=== PATIENT | female | born 1980 | race African-American/Black ===

== ENCOUNTER 2017-06-23 09:00 | Inpatient (IN) | payer OTHER ==
[2017-07-01 10:55] VITALS: BMI 31.6
[2017-07-05] MEDS ORDERED: ROPIVACAINE HCL 0.5% 30ML VIAL ONE (08:29)
[2017-07-05] MEDS ORDERED: DEXAMETHASONE SOD PHOSPHATE/PF 10 MG/ML SDV ONE (08:29)
[2017-07-05] MEDS ORDERED: MIDAZOLAM HCL 2 MG/2 ML SINGLE DOSE VIAL ONE ×2 (08:31)
--- NOTE | 2017-07-05 09:04 | HP ---
Past Medical History - Primary Care Physician PCP:: Riley Kearney - Admission Chief Complaint: 36yo P1 admitted for abdominal myomectomy. History of Present Illness: Fibroid uterus with menorrhagia, dysmenorrhea. 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 HEALTH: No: Alzheimer's, CVA, Dementia, Migraine, Multiple Sclerosis, Peripheral Neuropathy, Parkinson's, Seizure, Syncope, TIA, Vertigo, Other Cardiovascular: No: AFIB, Aneurysm, Aortic Insufficiency, Aortic Stenosis, CAD, CHF, Deep Vein Thrombosis, HTN, Hyperlipdemia, [place], Mitral Insufficiency, Mitral Stenosis, Murmur, Pulmonary Hypertension, Other Pulmonary: No: Asthma, Bronchitis, Cancer, COPD, O2 Dependent, Pneumonia, Previously Intubated, Pulmonary Embolus, Pulmonary Fibrosis, Sleep Apnea, Other Gastrointestinal: Yes: Other (mild Amylase elevation) Hepatobiliary: No: Cirrhosis, Cholelithiasis, Cholecystitis, Choledocholithiasis , Hepatitis A, Hepatitis B, Hepatitis C, Other Renal/: No: Renal Failure, Renal Inusuff, BPH, Cancer, Hematuria, Hemodialysis , Neurogenic Bladder, Renal Calculi, UTI, Other Reproductive: Yes: Other ((+) high risk HPV) ...: 3 ...Para: 1 () ...Spon : 1 ...Induced : 1 Heme/Onc: No: Anemia, B12 Deficiency, Bleeding Disorder, Cancer, Current Chemotherapy, Current Radiation Therapy, Hemochromatosis, Hypercoaguable State, Myeloproliferative Synd, Sickle Cell Disease, Sickle Cell Trait, Thrombocytopenia, Other Infectious Disease: No: AIDS, C-Diff, Herpes Zoster, HIV, MRSA, STD's, Tuberculosis, VREF, Other Psych: No: Addictions, Anxiety, Bipolar, Depression, Panic, Psychosis, Schizophrenia, Other Musculoskeletal: No: Bursitis, Chronic low back pain, Hemiparesis, Hemiplegia, Osteoarthritis, Paraplegia, Other Rheumatology: Yes: Fibromyalgia ENT: No: Allergic Rhinitis, Sinusitis, Other Endocrine: No: Frankewing's Disease, Parker's Disease, Diabetes Insipidus, Diabetes Mellitus, Hyperparathyroidism, Hyperthyroidism, Hypothyroidism, Osteopenia, SIADH, Other Dermatology: No: Basal Cell, Cellulitis, Eczema, Melanoma, Psoriasis, Squamous Cell, Other - Past Surgical History Hx Myomectomy: No Hx Transabdominal Cerclage: No Additional Surgical History: Pilonidal cyst I&D - Smoking History Smoking history: Never smoked - Alcohol/Substance Use Hx Alcohol Use: Yes (occas) History of Substance Use: reports: None - Social History Usual Living Arrangement: Yes: With Child ADL: Independent 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 History of Recent Travel: No Home Medications - Allergies Allergies/Adverse Reactions: Allergies Allergy/AdvReac Type Severity Reaction Status Date / Time levofloxacin [From Levaquin] Allergy "severe Verified 07/05/17 08:27 diarrhea" - Home Medications Home Medications: Ambulatory Orders Hydroxychloroquine Sulfate [Plaquenil] 200 mg PO HS 07/01/17 Ibuprofen [Motrin -] 400 mg PO PRN 07/01/17 Melatonin 10 mg PO HS 07/01/17 Multivitamin [Multiple Vitamins] 1 each PO DAILY 07/01/17 Family Disease History - Family Disease History Family Disease History: Other: Mother (Thyroid Dz), Sister (Thyroid Dz) Review of Systems - Review of Systems Constitutional: reports: No Symptoms Eyes: reports: No Symptoms HENT: reports: No Symptoms Neck: reports: No Symptoms Cardiovascular: reports: No Symptoms Respiratory: reports: No Symptoms Gastrointestinal: reports: No Symptoms Genitourinary: reports: No Symptoms Breasts: reports: No Symptoms Reported Musculoskeletal: reports: No Symptoms Integumentary: reports: No Symptoms Neurological: reports: No Symptoms Endocrine: reports: No Symptoms Hematology/Lymphatic: reports: No Symptoms Psychiatric: reports: No Symptoms Pain Intensity: 0 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 Signs: Vital Signs Temperature 98.1 F 07/05/17 08:25 Pulse Rate 81 07/05/17 08:25 Respiratory Rate 20 07/05/17 08:25 Blood Pressure 140/88 07/05/17 08:25 O2 Sat by Pulse Oximetry (%) 97 07/05/17 08:23 Constitutional: Yes: No Distress, Calm, Obese Eyes: Yes: WNL, Conjunctiva Clear, EOM Intact HENT: Yes: WNL, Atraumatic, Normocephalic Neck: Yes: WNL, Supple, Trachea Midline Cardiovascular: Yes: WNL, Regular Rate and Rhythm Respiratory: Yes: WNL, Regular, CTA Bilaterally Gastrointestinal: Yes: Normal Bowel Sounds, Soft, Abdomen, Obese ...Rectal Exam: Yes: WNL Renal/: Yes: WNL Pelvis: Yes: WNL External Genitalia: Yes: Normal Internal Exam Deferred: No Vaginal Exam: Yes: Normal Cervix: Yes: Normal Uterus: Yes: Enlarged (16-18 wks size), Firm, Lumpy Adnexa: Not Palpable: Left, Right Breast(s): Yes: WNL Musculoskeletal: Yes: WNL Extremities: Yes: WNL Edema: No Integumentary: Yes: WNL Neurological: Yes: WNL, Alert, Oriented ...Motor Strength: WNL Psychiatric: Yes: WNL, Alert, Oriented Imaging - Results Ultrasound: Report Reviewed Assessment/Plan 36yo P1 with fibroid uterus, admitted for abdominal myomectomy. We had discussed the risks, benefits, alternatives of surgery at length including but not limited to infection, bleeding, scarring, injury to surrounding organs/ structures, amenorrhea, infertility, hysterectomy, etc. The pt verbalized understanding and requested to proceed with surgery. I emphasized that all surgeries have risks and no guarantees can be provided
[2017-07-05] MEDS ORDERED: IBUPROFEN 400 MG TABLET (FP) PO PRN (09:09)
[2017-07-05] MEDS ORDERED: oxyCODONE HCL 5 MG TABLET PO PRN (09:09)
[2017-07-05] MEDS ORDERED: ACETAMINOPHEN 325 MG TABLET (FP) PO PRN (09:09)
[2017-07-05] MEDS ORDERED: ONDANSETRON 4 MG/2 ML VIAL IVPUSH PRN (09:09)
[2017-07-05] MEDS ORDERED: VASOPRESSIN 20 UNITS/ML VIAL IV ONE (09:10)
[2017-07-05] MEDS ORDERED: LACTATED RINGERS SOLUTION 1,000 ML IV SCH (09:15)
[2017-07-05] MEDS ORDERED: ceFAZolin SODIUM 1 GM VIAL IVPB ONE (09:34)
[2017-07-05] MEDS ORDERED: BENZOIN/ALOE VERA/STORAX/TOLU 58 ML BOTTLE ONE (12:01)
--- NOTE | 2017-07-05 12:13 | OP ---
Operative Note - Note: Operative Date: 07/05/17 Pre-Operative Diagnosis: Fibroid uterus, menorrhagia, dysmenorrhea Operation: Abdom myomectomy Findings: multiple fibroids Post-Operative Diagnosis: Same as Pre-op Surgeon: Riley Kearney Direct Sales Consultant: Nicolasa Hui Anesthesiologist/FRONT DESK ATTENDANT: Sarkis Rivers Anesthesia: General Specimens Removed: Fibroids x 12 Estimated Blood Loss (mls): 100 Drains & Tubes with Location: Carroll cath Drains, Volume Out (mls): 400 Blood Volume Replaced (mls): 0 Fluid Volume Replaced (mls): 800 Operative Report Dictated: Yes
[2017-07-05] MEDS ORDERED: oxyCODONE HCL 5 MG TABLET ONE ×2 (14:54→17:46)
[2017-07-05] MEDS ORDERED: ONDANSETRON 4 MG/2 ML VIAL ONE (15:07)
[2017-07-05] MEDS: oxyCODONE HCL 5 MG TABLET PO PRN ×2 (15:20→17:54)
--- NOTE | 2017-07-05 18:28 | OP ---
DATE OF OPERATION: 07/05/2017 PREOPERATIVE DIAGNOSES: Fibroid uterus, menorrhagia, dysmenorrhea. POSTOPERATIVE DIAGNOSES: Fibroid uterus, menorrhagia, dysmenorrhea. PROCEDURE: Abdominal myomectomy via a Pfannenstiel skin incision. SURGEON: Riley Kearney MD CABLE REELER: Nicolasa Hui MD ANESTHESIOLOGIST: Sarkis Rivers MD ANESTHESIA: General. COMPLICATIONS: None. ESTIMATED BLOOD LOSS: 100 mL URINE OUTPUT: Clear urine 400 mL at the end of the procedure. INTRAVENOUS FLUIDS: Crystalloids 800 mL. PATHOLOGY: Twelve separate fibroids. FINDINGS: Examination under anesthesia revealed an enlarged uterus, approximately 16 weeks in size. During laparotomy, an enlarged uterus with multiple fibroids noted. Most of the fibroids were intramural and subserosal. However, a large submucosal fibroid was also removed, and in the course of the removal of this submucosal fibroid, the uterine cavity was entered. DESCRIPTION OF PROCEDURE: The patient was met preoperatively. Risks, benefits, and alternatives of surgery were discussed at length. The risks of infection, bleeding, scarring, amenorrhea, infertility, pelvic pain, injury to surrounding or underlying structures, etc., were discussed. All of the questions were answered. The patient requested to proceed with surgery. The patient was brought to the OR with the IV running. She was placed on a surgical table in the supine position. The general endotracheal anesthesia was achieved without difficulty. The timeout procedure was conducted as per standard protocol. The patient was then prepped and draped in the usual sterile fashion. A Carroll catheter was left to drain to gravity. A Pfannenstiel skin incision was made approximately 2 cm above the pubic symphysis. The incision was carried down to the level of fascia. The fascia was incised in the midline. The incision was extended bilaterally using Mehta scissors. The fascia was dissected away from the rectus muscles superiorly and inferiorly. The rectus muscles were in the midline. The peritoneum was identified and entered sharply. The peritoneal incision was extended superiorly and inferiorly. The uterus was then grasped and brought up from the incision. The uterus was examined. It contained multiple fibroids as described above. The ovaries were normal bilaterally. The fallopian tubes were normal bilaterally. A tourniquet was then used around the lower uterine segment to reduce the blood loss. A dilute vasopressin solution was also used prior to serosal injection of larger subserosal fibroids, also to reduce the blood loss. The fibroids were then excised one by one. There was a large anterior fundal fibroid which was intramural, and that fibroid was excised. There was another fibroid near the right cornua. There were other several fibroids in the posterior body of the uterus. There was another fibroid in the left cornua of the uterus, and there was a submucosal, large, uterine body fibroid. During removal of the submucosal fibroid, it was noted that the uterine cavity was entered. All of the incisions were repaired in multiple layers to maintain good hemostasis. The serosa incisions were closed with a baseball stitch. Once the surgery was completed, the tourniquet was released. Several points of bleeding were ligated with a [id number] 2-0 Vicryl suture. Once this was accomplished, the uterus was monitored for 4-5 minutes to assure good hemostasis. Since no further bleeding was noted, the uterus was returned into the abdominal cavity. Once the uterus was returned into the abdominal cavity, it was once again surveyed, and good hemostasis was assured. In order to reduce the future adhesions, Interceed was used over the serosal incisions. The Interceed was applied without problems. The abdominal peritoneum was then closed using a 0 Vicryl suture. The rectus muscles were approximated using several interrupted 0 Vicryl sutures. The fascia was closed using a 0 Vicryl suture in 2 segments with good hemostasis and approximation. The subcutaneous adipose tissues were approximated using several interrupted 2-0 Vicryl sutures. The skin was closed with a 3-0 Vicryl suture using a subcutaneous stitch. The patient tolerated the procedure well. Sponge, lap, and needle counts were correct. The patient was transferred to recovery room awake and in stable condition. Brenda [id number]
[2017-07-05] MEDS: oxyCODONE HCL 10 MG SUSTAINED ACTING TABLET PO SCH ×2 (18:39→22:21)
[2017-07-06] MEDS: oxyCODONE HCL 5 MG TABLET PO PRN ×3 (08:34→17:49)
[2017-07-06 09:27] LABS: BASO % 0.6 % (0-2.0); HEMATOCRIT 30.3 % (32.4-45.2); HEMOGLOBIN 9.9 GM/dL (10.7-15.3); LYMPH % 16.8 % (8-40); MCHC 32.7 g/dl (32.0-36.0); MEAN CELL VOLUME 76.3 fl (80-96); MONO % 10.5 % (3.8-10.2); NEUT % 72.1 % (42.8-82.8); PLATELET COUNT 306 K/MM3 (134-434); RBC 3.97 M/mm3 (3.60-5.2); RDW 15.4 % (11.6-15.6); WHITE BLOOD COUNT 12.6 K/mm3 (4.0-10.0)
[2017-07-06 09:51] LABS: ALBUMIN 2.9 g/dl (3.4-5.0); ALK PHOS 61 U/L (45-117); ANION GAP 6 (8-16); BILIRUBIN,TOTAL 0.4 mg/dL (0.2-1.0); BLOOD UREA NITROGEN 8 mg/dL (7-18); CALCIUM 8.3 mg/dL (8.5-10.1); CHLORIDE 105 mmol/L (98-107); CO2 29 mmol/L (21-32); CREATININE 0.8 mg/dL (0.55-1.02); GLUCOSE,RANDOM 106 mg/dL (74-106); POTASSIUM 3.8 mmol/L (3.5-5.1); SGOT/AST 30 U/L (15-37); SGPT/ALT 21 U/L (12-78); SODIUM 140 mmol/L (136-145); TOT PROT 6.3 g/dl (6.4-8.2)
[2017-07-06] MEDS ORDERED: IBUPROFEN 600 MG TABLET (FP) PO PRN (09:53)
--- NOTE | 2017-07-06 09:53 | PN ---
Progress Note (SOAP) - Subjective Chief Complaint: Incision pain, o/w well History of Present Illness: POD#1 s/p abdominal myomectomy - Current Medications Current Medications: Active Medications Acetaminophen (Tylenol -) 650 mg PO Q4H PRN PRN Reason: PAIN Last Admin: 07/06/17 01:22 Dose: 650 mg Fentanyl (Sublimaze Injection -) 50 mcg IVPUSH [id number] PRN PRN Reason: PAIN-PACU ORDER X 4 DOSES ONLY Last Admin: 07/05/17 13:15 Dose: 50 mcg Lactated Ringer's (Lactated Ringers Solution) 1,000 mls @ 125 mls/hr IV ASDIR ARIC Ibuprofen (Motrin -) 400 mg PO Q4H PRN PRN Reason: FEVER Last Admin: 07/06/17 01:21 Dose: 400 mg Ondansetron HCl (Zofran Injection) 4 mg IVPUSH Q6H PRN PRN Reason: NAUSEA Last Admin: 07/05/17 15:00 Dose: 4 mg Oxycodone HCl (Roxicodone -) 5 mg PO Q3H PRN PRN Reason: PAIN LEVEL 1-5 Last Admin: 07/06/17 08:34 Dose: 5 mg Oxycodone HCl (Roxicodone -) 10 mg PO Q3H PRN PRN Reason: PAIN LEVEL 6-10 Last Admin: 07/05/17 17:54 Dose: 10 mg Oxycodone HCl (Oxycontin -) 10 mg PO BID ARIC Stop: 07/08/17 11:56 Last Admin: 07/05/17 22:21 Dose: 10 mg - Objective Vital Signs: Vital Signs Temperature 98.7 F 07/06/17 05:51 Pulse Rate 83 07/06/17 05:51 Respiratory Rate 20 07/06/17 05:51 Blood Pressure 108/69 07/06/17 05:51 O2 Sat by Pulse Oximetry (%) 97 07/06/17 05:52 Constitutional: Yes: No Distress, Calm, Obese Eyes: Yes: WNL, Conjunctiva Clear, EOM Intact HENT: Yes: WNL, Atraumatic, Normocephalic Neck: Yes: WNL, Supple, Trachea Midline Cardiovascular: Yes: WNL, Regular Rate and Rhythm Respiratory: Yes: WNL, Regular, CTA Bilaterally Gastrointestinal: Yes: Normal Bowel Sounds, Soft, Abdomen, Obese Genitourinary: Yes: WNL, Vaginal Bleeding (mild) Musculoskeletal: Yes: WNL Extremities: Yes: WNL Peripheral Pulses WNL: Yes Edema: No Integumentary: Yes: WNL Wound/Incision: Yes: Clean/Dry, Well Approximated, Sutures Intact, Steri Strips , Open to air Neurological: Yes: WNL, Alert, Oriented ...Motor Strength: Yes: WNL Psychiatric: Yes: WNL Labs Lab Results: CBC, BMP 07/06/17 09:00 Assessment/Plan 36yo P1 doing well postop Asymptomatic for anemia. Ambulation encouraged Advance diet. F/u CBC in am
[2017-07-06] MEDS: oxyCODONE HCL 10 MG SUSTAINED ACTING TABLET PO SCH ×2 (10:15→21:06)
[2017-07-06] MEDS: ACETAMINOPHEN 325 MG TABLET (FP) PO PRN ×2 (13:03→17:48)
--- NOTE | 2017-07-06 17:11 | PATH ---
Surgical Pathology Report Patient Name: TRINI RAZO [facility]. Rec. 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 Specimen(s) Received UTERINE FIBROIDS Clinical History Fibroid uterus, dysmenorrhea, menorrhagia Final Diagnosis UTERUS, FIBROIDS, ABDOMINAL MYOMECTOMY: LEIOMYOMATA. Electronically Signed Susanne Mathur M.D. Gross Description Received in formalin labeled "uterine fibroids," are 12 gary, rubbery nodules, consistent with fibroids. The fibroids range from 1.8-7.0 cm in greatest dimension. Sectioning reveals gary, firm to rubbery parenchyma with whorled architecture. No areas of hemorrhage or necrosis are identified. Reset Merchandiser sections are submitted in 9 cassettes as follows: 1-6-smaller fibroids; 7-9-largest fibroid. /07/05/2017 saudi/07/05/2017
[2017-07-07] MEDS: ACETAMINOPHEN 325 MG TABLET (FP) PO PRN ×2 (04:16→14:26)
[2017-07-07] MEDS: oxyCODONE HCL 5 MG TABLET PO PRN ×2 (04:17→14:28)
[2017-07-07 08:59] LABS: BASO % 0.6 % (0-2.0); EOS % 0.3 % (0-4.5); HEMATOCRIT 31.2 % (32.4-45.2); HEMOGLOBIN 10.2 GM/dL (10.7-15.3); LYMPH % 31.1 % (8-40); MCH 25.2 pg (25.7-33.7); MCHC 32.6 g/dl (32.0-36.0); MEAN CELL VOLUME 77.3 fl (80-96); MEAN PLT VOLUME 6.9 fl (7.5-11.1); MONO % 11.5 % (3.8-10.2); NEUT % 56.5 % (42.8-82.8); PLATELET COUNT 292 K/MM3 (134-434); RBC 4.03 M/mm3 (3.60-5.2); RDW 15.6 % (11.6-15.6); WHITE BLOOD COUNT 10.4 K/mm3 (4.0-10.0)
[2017-07-07] MEDS: oxyCODONE HCL 10 MG SUSTAINED ACTING TABLET PO SCH (09:34)
[2017-07-07 12:12] VITALS: BP 111/70; PULSE 85; TEMP 98.7
--- NOTE | 2017-07-07 16:03 | PN ---
Progress Note (SOAP) - Subjective Chief Complaint: Pt is w/o complaints, doing well. Pain is controlled History of Present Illness: POD#2 s/p abdominal myomectomy - Current Medications Current Medications: Active Medications Acetaminophen (Tylenol -) 650 mg PO Q6H PRN PRN Reason: FEVER Last Admin: 07/07/17 14:26 Dose: 650 mg Fentanyl (Sublimaze Injection -) 50 mcg IVPUSH [id number] PRN PRN Reason: PAIN-PACU ORDER X 4 DOSES ONLY Last Admin: 07/05/17 13:15 Dose: 50 mcg Lactated Ringer's (Lactated Ringers Solution) 1,000 mls @ 125 mls/hr IV ASDIR ARIC Ibuprofen (Motrin -) 600 mg PO Q6H PRN PRN Reason: PAIN Last Admin: 07/06/17 20:22 Dose: 600 mg Ondansetron HCl (Zofran Injection) 4 mg IVPUSH Q6H PRN PRN Reason: NAUSEA Last Admin: 07/05/17 15:00 Dose: 4 mg Oxycodone HCl (Roxicodone -) 5 mg PO Q3H PRN PRN Reason: PAIN LEVEL 1-5 Last Admin: 07/06/17 17:49 Dose: 5 mg Oxycodone HCl (Roxicodone -) 10 mg PO Q3H PRN PRN Reason: PAIN LEVEL 6-10 Last Admin: 07/07/17 14:28 Dose: 10 mg Oxycodone HCl (Oxycontin -) 10 mg PO BID ARIC Stop: 07/08/17 11:56 Last Admin: 07/07/17 09:34 Dose: 10 mg - Objective Vital Signs: Vital Signs Temperature 98.7 F 07/07/17 10:00 Pulse Rate 85 07/07/17 10:00 Respiratory Rate 20 07/07/17 10:00 Blood Pressure 111/70 07/07/17 10:00 O2 Sat by Pulse Oximetry (%) 97 07/06/17 05:52 Constitutional: Yes: No Distress, Calm, Obese Eyes: Yes: WNL, Conjunctiva Clear HENT: Yes: WNL, Atraumatic, Normocephalic Neck: Yes: WNL, Supple, Trachea Midline Cardiovascular: Yes: WNL, Regular Rate and Rhythm Respiratory: Yes: WNL, Regular, CTA Bilaterally Gastrointestinal: Yes: WNL, Normal Bowel Sounds, Soft, Abdomen, Obese Genitourinary: Yes: Vaginal Bleeding (light) Musculoskeletal: Yes: WNL Extremities: Yes: WNL Peripheral Pulses WNL: Yes Edema: No Integumentary: Yes: WNL Wound/Incision: Yes: Clean/Dry, Well Approximated, Steri Strips, Open to air Neurological: Yes: WNL, Alert, Oriented ...Motor Strength: Yes: WNL Psychiatric: Yes: WNL Labs Lab Results: CBC, BMP 07/07/17 08:00 07/06/17 09:00 Assessment/Plan 36yo P1 doing well postop. Hct is stable. Asymptomatic for anemia. Ambulation encouraged Tolerating regular diet, has flatus, no nausea or vomiting. Discharge instructions were reviewed. D/c home today
--- NOTE | 2017-07-07 16:17 | DS ---
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 Vital Signs: Vital Signs Temperature 98.7 F 07/07/17 10:00 Pulse Rate 85 07/07/17 10:00 Respiratory Rate 20 07/07/17 10:00 Blood Pressure 111/70 07/07/17 10:00 O2 Sat by Pulse Oximetry (%) 97 07/06/17 05:52 Constitutional: Yes: Well Nourished, No Distress, Calm, Obese Eyes: Yes: WNL, Conjunctiva Clear HENT: Yes: WNL, Atraumatic, Normocephalic Neck: Yes: WNL, Supple, Trachea Midline Cardiovascular: Yes: WNL, Regular Rate and Rhythm Respiratory: Yes: WNL, Regular, CTA Bilaterally Gastrointestinal: Yes: WNL, Normal Bowel Sounds, Soft, Abdomen, Obese ...Rectal Exam: Yes: Deferred Renal/: Yes: WNL, Vaginal Bleeding (light) External Genitalia: Yes: Normal Internal Exam Deferred: Yes Musculoskeletal: Yes: WNL Extremities: Yes: WNL Edema: No Integumentary: Yes: WNL Wound/Incision: Yes: Clean/Dry, Well Approximated, Sutures Intact, Steri Strips , Open to air Neurological: Yes: WNL, Alert, Oriented ...Motor Strength: WNL Psychiatric: Yes: WNL, Alert, Oriented Labs: CBC, BMP 07/07/17 08:00 07/06/17 09:00 Discharge Summary Reason For Visit: FIBROIDS UTERUS, DYSMENORRHEA, MENORRHAGIA Current Active Problems Status post myomectomy (Acute) Procedures: Principal: Abdominal myomectomy Hospital Course: Normal recovery Condition: Good - Instructions Diet, Activity, Other Instructions: Dr. Riley Kearney Workers' Compensation Claims Examiner discharge instructions Physical activity Resume your normal everyday activity as tolerated no heavy lifting or exercise until seen by your surgeon. You may walk unlimited geovanna of and climb stairs. You may resume driving the car when you feel safe and comfortable behind the wheel. No sexual activity as instructed by Dr. Kearney. Wound care If you have a bandage, leave it on, and keep dry for 48-72 hours. After that time discard the outer bandage. If they are tapes on the skin under the out of bandage leave them in place. They will peel off in the next 7 to 10 days. Do Not Peel them off. You may shower the day after surgery. If there are tapes present on the skin, you may shower over them. Diet There are no dietary restrictions. Eat healthy, high-fiber foods. Drink 6 to 8 glasses of liquid each day. This will assist in keeping your bowels are regular. Pain management You may take Tylenol or acetaminophen or Ibuprofen (for example, Motrin, Advil etc.) from my pain prescription medication is ordered should be taken as prescribed for moderate to severe pain. Call Dr. Kearney for any of the following: Severe pain not relieved by medication Fever of 101 or higher Excessive bleeding or drainage on dressing Inability to urinate Call the office at [phone] for an appointment in seven days. Referrals: Riley Kearney MD [Staff Physician] - Disposition: HOME - Home Medications Comprehensive Discharge Medication List: Ambulatory Orders Hydroxychloroquine Sulfate [Plaquenil] 200 mg PO HS 07/01/17 Ibuprofen [Motrin -] 400 mg PO PRN 07/01/17 Melatonin 10 mg PO HS 07/01/17 Multivitamin [Multiple Vitamins] 1 each PO DAILY 07/01/17 Ibuprofen 600 mg PO Q6H PRN #30 tablet 07/07/17 Oxycodone HCl/Acetaminophen [Percocet 5-325 mg Tablet -] 1 - 2 tab PO Q6H PRN # 20 tab MDD 8 07/07/17
== END 2017-07-07 16:30 | disposition home or self-care (01) | DRG 743 ==
LOC: JSAMEDAYSX 07-05 07:40 → EDSTATUS 07-05 09:00 → J3W 07-05 17:45
PROVIDERS: ADMIT Obstetrics & Gynecology; ATTEND Obstetrics & Gynecology
PROC: 0UB90ZZ Excision of Uterus, Open Approach (ICD-10-PCS; principal; 2017-07-05 09:00)
DX: D25.1 Intramural leiomyoma of uterus (principal); D25.2 Subserosal leiomyoma of uterus; N92.0 Excessive and frequent menstruation with regular cycle; N94.6 Dysmenorrhea, unspecified
CPT/HCPCS: 36415; 80053; 84703; 85025; 86850; 86900; 86901; 88305-TC; 94760

== ENCOUNTER 2017-12-21 11:44 | Emergency (ER) | payer OTHER ==
[2017-12-21 12:44] VITALS: TEMP 99; BMI 31.6
--- NOTE | 2017-12-21 13:49 | PDOC ---
History of Present Illness - General Chief Complaint: Pain Stated Complaint: PAIN ALL OVER BODY Time Seen by Provider: 12/21/17 13:03 History Source: Patient Exam Limitations: No Limitations - History of Present Illness Initial Comments: 12/21/17 13:44 Patient is a 37F with history of fibromyalgia and lupus here today complaining of diffuse pain for the past four months. Patient states that she has intermittent pain involving her head, chest, back, neck, abdomen and legs without any known triggers. Patient states that as of right now, she is only having pain in her right knee. Denies trauma, states that she's able to walk. 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 A histone antibody test was positive so the patient was started on hydroxychloroquine 3.5 months ago, but her symptoms have not improved. She takes nabumetone, flexiril, ibuprofen, savella and gabapentin for her pain, but she states that nothing has worked. Patient states that she does not believe that her symptoms are due to fibromyalgia and is concerned that there is something else going on. Past History - Past Medical History Allergies/Adverse Reactions: Allergies Allergy/AdvReac Type Severity Reaction Status Date / Time levofloxacin [From Levaquin] Allergy "severe Verified 12/21/17 12:39 diarrhea" Home Medications: Ambulatory Orders Hydroxychloroquine Sulfate [Plaquenil] 200 mg PO BID 07/01/17 Ibuprofen 600 mg PO Q6H PRN #30 tablet 07/07/17 Cyclobenzaprine HCl [Flexeril -] 10 mg PO HS 12/21/17 Gabapentin [Neurontin] 200 mg PO HS 12/21/17 Milnacipran HCl [Savella] 12.5 mg PO ASDIR 12/21/17 Nabumetone [Relafen -] 750 mg PO BID 12/21/17 Anemia: No Asthma: No Cancer: No Cardiac Disorders: No CVA: No COPD: No CHF: No Dementia: No Diabetes: No GI Disorders: No Disorders: No HTN: No Hypercholesterolemia: No Liver Disease: No Seizures: No Thyroid Disease: No Other medical history: fibromyalgia, lupus - Suicide/Smoking/Psychosocial Hx Smoking History: Never smoked Hx Alcohol Use: No Drug/Substance Use Hx: No Substance Use Type: None Hx Substance Use Treatment: No Review of Systems - Review of Systems Comments:: 12/21/17 13:49 GENERAL/CONSTITUTIONAL: No fever or chills. No weakness. HEAD, EYES, EARS, NOSE AND THROAT: No change in vision. No sore throat. CARDIOVASCULAR: No chest pain or shortness of breath RESPIRATORY: No cough, wheezing, or hemoptysis. GASTROINTESTINAL: No nausea, vomiting, diarrhea or constipation. GENITOURINARY: No dysuria, frequency, or change in urination. MUSCULOSKELETAL: +diffuse pain. +neck +back pain. SKIN: No rash NEUROLOGIC: +headache, no vertigo, loss of consciousness, or change in strength/ sensation. ENDOCRINE: No increased thirst. No abnormal weight change HEMATOLOGIC/LYMPHATIC: No anemia, easy bleeding, or history of blood clots. ALLERGIC/IMMUNOLOGIC: No hives or skin allergy. *Physical Exam - Vital Signs Last Vital Signs Temp Pulse Resp BP Pulse Ox 99 F 97 H 18 113/72 99 12/21/17 12:41 12/21/17 12:41 12/21/17 12:41 12/21/17 12:41 12/21/17 12:41 - Physical Exam Comments: 12/21/17 13:52 GENERAL: Awake, alert, and fully oriented, in no acute distress HEAD: No signs of trauma, normocephalic, atraumatic EYES: PERRLA, EOMI, sclera anicteric, conjunctiva clear ENT: Auricles normal inspection, hearing grossly normal, nares patent, oropharynx clear without exudates. Moist mucosa NECK: Normal ROM, supple, no lymphadenopathy, JVD, or masses LUNGS: No distress, speaks full sentences, clear to auscultation bilaterally HEART: Regular rate and rhythm, normal S1 and S2, no murmurs, rubs or gallops, peripheral pulses normal and equal bilaterally. ABDOMEN: Soft, nontender, normoactive bowel sounds. No guarding, no rebound. No masses EXTREMITIES: Normal inspection, Normal range of motion, no edema. No clubbing or cyanosis. NEUROLOGICAL: Cranial nerves II through XII grossly intact. Normal speech, normal gait, no focal sensorimotor deficits SKIN: Warm, Dry, normal turgor, no rashes or lesions noted. R KNEE: No effusion, tender diffusely, normal ROM, no signs of trauma. ED Treatment Course - LABORATORY CBC & Chemistry Diagram: 12/21/17 14:07 12/21/17 14:07 Medical Decision Making - Medical Decision Making 12/21/17 14:07 Patient is 37F with history of fibromyalgia, lupus here today with diffuse pain. Vital signs normal and stable. Will attempt to control pain with low dose ketamine. DDx includes, but is not limited to: hypothyroidism, fibromyalgia, sickle cell disease. Will evaluate with cbc, cmp, ua, upreg, tsh, hemoglobin electrophoresis. Will setup with neurology and pain management. 12/21/17 15:17 Patient reassessed, resting comfortably. UA normal. CBC normal. CMP reassuring. Upreg negative. TSH normal. Lyme and hemoglobin electrophoresis pending. Knee x-ray normal. Will discharge home into care of parents. Vitals normal and stable. *DC/Admit/Observation/Transfer Diagnosis at time of Disposition: Chronic pain - Discharge Dispostion Disposition: HOME Condition at time of disposition: Good Decision to Admit order: No - Referrals Referrals: Shana Caldwell MD [Primary Care Provider] - Andre Gonzalez DO [Staff Physician] - Brandon Mendez MD [Staff Physician] - - Patient Instructions Printed Discharge Instructions: DI for Chronic Pain -- Adult Additional Instructions: Please call the neurologist and pain specialist in your paperwork today to set up further follow up. Please return if you have any new, worsening or concerning symptoms, especially fever or shortness of breath. - Post Discharge Activity
[2017-12-21] MEDS ORDERED: KETAMINE HCL 500 MG/10 ML VIAL IV ONE (13:58)
[2017-12-21] MEDS ORDERED: KETAMINE HCL 200 MG/20 ML VIAL ONE (14:01)
--- NOTE | 2017-12-21 14:04 | PDOC ---
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 Denies any acute complaints of f/c/cardiopulmonary issues/rash/joint swelling, but reports varying degrees of myalgia/arthralgia. She is looking for another opinion regarding a specific diagnosis that can lead to targeted treatment, and not just take random pain medications. She has not seen neurology or pain management in the past. She denies any depression/SI/Anxiety. Her visit today was prompted by continued pain, questions regarding her diagnosis (second opinion), and a concern for sickle cell anemia after reading up on the internet. - Physicial Exam PE: 12/21/17 14:04 afebrile alert, seated in stretcher in no acute distress no jaundice/pallor no palpable thyroid abnormality heart regular without murmur, ctab abd soft, no hsm no edema joints ttp, particularly R knee, without warmth/erythema/effusion, FROM with some discomfort. nvi distally no si/hi/ah/vh - Medical Decision Making 12/21/17 14:08 This is a 37-year-old female with chronic pain syndrome without a clear diagnosis presents with persistent pain despite her home regimen and a request for further testing/second opinion. Vital signs are normal, no acute findings on exam to suggest an infectious or traumatic etiology. Suspect this may be more metabolic or rheumatologic, has had extensive testing as an outpatient already. Had extensive discussion with the patient regarding goals of care and what she hopes to get out of this ED visit. We will try to treat her pain without opiates, per her request. We will send regular blood testing including hemoglobin electrophoresis studies, and if no obvious abnormalities plan for expedited outpatient referral for second opinion including neurology and pain management. Labs, urinalysis Pain control Reassess
[2017-12-21 14:31] LABS: HEMATOCRIT 40.7 % (32.4-45.2); HEMOGLOBIN 13.4 GM/dL (10.7-15.3); MCH 26.1 pg (25.7-33.7); MCHC 32.9 g/dl (32.0-36.0); MEAN CELL VOLUME 79.5 fl (80-96); MEAN PLT VOLUME 7.4 fl (7.5-11.1); PLATELET COUNT 371 K/MM3 (134-434); RBC 5.12 M/mm3 (3.60-5.2); RDW 19.8 % (11.6-15.6); WHITE BLOOD COUNT 8.4 K/mm3 (4.0-10.0)
[2017-12-21 14:35] LABS: HCG,QUALITATIVE URINE Negative
[2017-12-21 14:55] LABS: URINE APPEARANCE CLEAR; URINE BILIRUBIN NEGATIVE (<2.0 mg/dL); URINE COLOR LTYELLOW; URINE GLUCOSE (UA) NEGATIVE (NEGATIVE); URINE KETONE NEGATIVE (NEGATIVE); URINE LEUK ESTERASE NEGATIVE (NEGATIVE); URINE NITRITE NEGATIVE (NEGATIVE); URINE PROTEIN NEGATIVE (NEGATIVE); URINE UROBILINOGEN NEGATIVE mg/dL (0.2-1.0)
[2017-12-21 15:08] LABS: ALBUMIN 3.8 g/dl (3.4-5.0); ALK PHOS 75 U/L (45-117); ANION GAP 4 MMOL/L (8-16); BILIRUBIN,TOTAL 0.3 mg/dL (0.2-1); BLOOD UREA NITROGEN 8 mg/dL (7-18); CALCIUM 9.3 mg/dL (8.5-10.1); CHLORIDE 105 mmol/L (98-107); CO2 28 mmol/L (21-32); CREATININE 0.8 mg/dL (0.55-1.3); GLUCOSE,RANDOM 87 mg/dL (74-106); POTASSIUM 4.1 mmol/L (3.5-5.1); SGOT/AST 26 U/L (15-37); SGPT/ALT 28 U/L (13-61); SODIUM 138 mmol/L (136-145)
[2017-12-21 15:43] VITALS: BP 126/83; PULSE 89
[2017-12-24 00:08] LABS: HGB SOLUBILITY Positive (Negative); Hgb A 60.1 % (96.4-98.8); Hgb C 0 % (0.0); Hgb F 0 % (0.0-2.0); Hgb S 35.9 % (0.0)
== END 2017-12-21 16:35 | disposition home or self-care (01) ==
LOC: JER 11:44
DX: G89.29 Other chronic pain (principal); M79.7 Fibromyalgia; Z87.39 Personal history of other diseases of the musculoskeletal system and connective tissue
CPT/HCPCS: 36415; 73562-TC-RT-FY; 80053; 81003; 83021; 84443; 84703; 85027; 85660; 86618; 99284-25

== ENCOUNTER 2021-10-06 04:34 | Day surgery (SDC) | payer BC ==
[2021-10-01 17:11] VITALS: BMI 36.2
[2021-10-06] MEDS ORDERED: PROPOFOL 20 ML ONE (16:08)
[2021-10-06] MEDS ORDERED: MIDAZOLAM HCL 2 MG/2 ML SINGLE DOSE VIAL ONE (16:08)
[2021-10-06] MEDS ORDERED: ceFAZolin SODIUM 1 GM VIAL IVPB ONE ×2 (16:15→16:24)
[2021-10-06] MEDS ORDERED: oxyCODONE HCL 5 MG TABLET PO PRN (17:07)
[2021-10-06] MEDS ORDERED: ACETAMINOPHEN 1000 MG/100 ML BAG IVPB PRN (17:07)
[2021-10-06] MEDS ORDERED: LACTATED RINGERS SOLUTION 1,000 ML IV SCH (17:15)
[2021-10-06] MEDS ORDERED: IBUPROFEN 600 MG TABLET (FP) PO ONE ×2 (19:20→19:22)
[2021-10-06 19:51] VITALS: BP 127/84; PULSE 90; TEMP 97.9
== END 2021-10-06 19:30 | disposition home or self-care (01) ==
LOC: JASU-SURG 04:34
PROVIDERS: ATTEND Obstetrics & Gynecology
PROC: 0UDB7ZX Extraction of Endometrium, Via Natural or Artificial Opening, Diagnostic (ICD-10-PCS; 2021-10-06)
PROC: 0U5B8ZZ Destruction of Endometrium, Via Natural or Artificial Opening Endoscopic (ICD-10-PCS; principal; 2021-10-06 13:00)
DX: N92.0 Excessive and frequent menstruation with regular cycle (principal); D25.9 Leiomyoma of uterus, unspecified
CPT/HCPCS: 81025; 88305-TC; 94760

== ENCOUNTER 2022-08-03 11:00 | Inpatient (IN) | payer BC ==
[2022-08-11 13:29] VITALS: BMI 35.7
[2022-08-17] MEDS ORDERED: ACETAMINOPHEN INJECTION 100 ML IVPB ONE (08:40)
[2022-08-17] MEDS ORDERED: DEXMEDETOMIDINE HCL 200 MCG/2 ML IVPB ONE (08:40)
[2022-08-17] MEDS ORDERED: BUPIVACAINE HCL/PF 0.25% (2.5MG/ML) 10 ML VIAL ONE (08:40)
[2022-08-17] MEDS ORDERED: MIDAZOLAM HCL 2 MG/2 ML SINGLE DOSE VIAL ONE (08:45)
[2022-08-17] MEDS ORDERED: TRANEXAMIC ACID 1000 MG/10 ML VIAL IVPUSH ONE (09:20)
[2022-08-17] MEDS ORDERED: CEFAZOLIN SODIUM 2 GM in DEXTROSE 5%-WATER 100 ML IVPB ONE (09:20)
[2022-08-17] MEDS ORDERED: ACETAMINOPHEN 1000 MG/100 ML BAG IVPB ONE (09:20)
[2022-08-17] MEDS ORDERED: HYDROmorphone HCl 2 MG/ML VIAL ONE (09:28)
[2022-08-17] MEDS ORDERED: ROCURONIUM BROMIDE 50 MG/5 ML SYRINGE ONE ×2 (09:30→10:40)
[2022-08-17] MEDS ORDERED: ceFAZolin SODIUM 1 GM VIAL IVPB ONE ×2 (09:40)
[2022-08-17] MEDS ORDERED: PROPOFOL 20 ML ONE (11:17)
[2022-08-17] MEDS ORDERED: NEOSTIGMINE METHYLSULFATE 0.5 MG/1 ML - 10 ML MDV ONE (11:30)
[2022-08-17] MEDS ORDERED: ONDANSETRON 4 MG/2 ML VIAL IVPUSH PRN (12:03)
[2022-08-17] MEDS ORDERED: PROMETHAZINE HCL 25 MG/1 ML VIAL IVPB PRN (12:03)
[2022-08-17] MEDS ORDERED: LACTATED RINGERS SOLUTION 1,000 ML IV SCH (12:15)
[2022-08-17] MEDS ORDERED: HYDROmorphone *PCA* 10MG/50ML DISP.SYRIN PCA SCH (12:15)
[2022-08-17] MEDS: CEFAZOLIN SODIUM 2 GM in DEXTROSE 5%-WATER 100 ML IVPB SCH (17:09)
[2022-08-17] MEDS ORDERED: diphenhydrAMINE HCL 25 MG CAPSULE (FP) PO ONE (22:45)
[2022-08-18] MEDS: CEFAZOLIN SODIUM 2 GM in DEXTROSE 5%-WATER 100 ML IVPB SCH ×2 (01:48→09:47)
[2022-08-18] MEDS ORDERED: oxyCODONE HCL 5 MG TABLET PO PRN ×2 (10:46→15:57)
[2022-08-18] MEDS ORDERED: ENOXAPARIN NA (PORCINE) 40 MG/0.4 ML DISP.SYRIN SQ ONE (10:47)
[2022-08-18] MEDS ORDERED: ACETAMINOPHEN 325 MG TABLET (FP) PO PRN (10:48)
[2022-08-18] MEDS ORDERED: IBUPROFEN 400 MG TABLET (FP) PO PRN (10:49)
[2022-08-18 12:41] LABS: BASO % 0.7 % (0-2.0); HEMATOCRIT 34.5 % (32.4-45.2); HEMOGLOBIN 11.4 GM/dL (10.7-15.3); LYMPH % 17.8 % (8-40); MCH 23.9 pg (25.7-33.7); MCHC 33.2 g/dl (32.0-36.0); MEAN CELL VOLUME 72.1 fl (80-96); MEAN PLT VOLUME 7.4 fl (7.5-11.1); MONO % 8.4 % (3.8-10.2); NEUT % 73.1 % (42.8-82.8); PLATELET COUNT 332 10^3/uL (134-434); RBC 4.78 M/mm3 (3.60-5.2); RDW 16.3 % (11.6-15.6); WHITE BLOOD COUNT 14.3 K/mm3 (4.0-10.0)
[2022-08-18] MEDS ORDERED: KETOROLAC TROMETHAMINE 30 MG/1 ML VIAL IM PRN (20:21)
[2022-08-18] MEDS ORDERED: DOCUSATE SODIUM 100 MG CAPSULE (FP) PO PRN (20:22)
[2022-08-18] MEDS: HYDROmorphone HCL 2 MG TABLET PO PRN (20:38)
[2022-08-19] MEDS: HYDROmorphone HCL 2 MG TABLET PO PRN ×2 (03:46→08:25)
[2022-08-19 09:11] VITALS: BP 133/79; PULSE 95; RESP 17; TEMP 98.4
[2022-08-19] MEDS ORDERED: NAPROXEN 500 MG TABLET PO SCH (10:30)
== END 2022-08-19 19:35 | disposition home or self-care (01) | DRG 743 ==
LOC: J2C 08-17 04:18 → J3W 08-17 15:28
PROVIDERS: ADMIT Obstetrics & Gynecology; ATTEND Obstetrics & Gynecology
PROC: 0UT70ZZ Resection of Bilateral Fallopian Tubes, Open Approach (ICD-10-PCS; 2022-08-17)
PROC: 0UT90ZL Resection of Uterus, Supracervical, Open Approach (ICD-10-PCS; principal; 2022-08-17 09:00)
DX: D25.9 Leiomyoma of uterus, unspecified (principal); G89.18 Other acute postprocedural pain
CPT/HCPCS: 36415; 81025; 85025; 86850; 86900; 86901; 88302-TC; 88307-TC; 94010; 94760; C9803-CS; U0003; U0005